=== PATIENT | female | born 1965 | race African-American/Black ===

== ENCOUNTER 2018-11-24 11:33 | Emergency (ER) | payer SELFPAY ==
[2018-11-24 12:48] LABS: Anion Gap 19 mmol/L (10-20); BUN (Urea Nitrogen) 47 mg/dL (9.8-20.1); Calc. Creatinine Clearance 0 mL/min (70-130); Calcium 10.2 mg/dL (7.8-10.44); Carbon Dioxide 21 mmol/L (22-29); Chloride 108 mmol/L (98-107); Estimated GFR-MDRD 16; Glucose 140 mg/dL (70-105); Potassium 4.6 mmol/L (3.5-5.1); Sodium 143 mmol/L (136-145)
[2018-11-24 13:14] LABS: CKMB 0.8 ng/mL (0-6.6)
== END 2018-11-24 14:45 | disposition home or self-care (01) ==
LOC: NAV ERS 11:33
DX: R79.89 Other specified abnormal findings of blood chemistry (principal); I13.0 Hypertensive heart and chronic kidney disease with heart failure and stage 1 through stage 4 chronic kidney disease, or unspecified chronic kidney disease; E11.22 Type 2 diabetes mellitus with diabetic chronic kidney disease; N18.9 Chronic kidney disease, unspecified; I50.9 Heart failure, unspecified; F17.210 Nicotine dependence, cigarettes, uncomplicated; Z79.899 Other long term (current) drug therapy; Z79.82 Long term (current) use of aspirin
CPT/HCPCS: 80048; 82553; 84484; 93005

== ENCOUNTER 2019-02-22 14:07 | Outpatient (CLI) | payer OTHER ==
--- NOTE | 2019-02-22 14:31 | RAD ---
Exam:2 views left knee HISTORY: Pain. Disability evaluation. COMPARISON: None FINDINGS: Chondrocalcinosis of the medial and lateral compartment. Moderate joint space narrowing med ially, mild to moderate lateral joint space narrowing and is severe narrowing of the patellofemoral compartment. No fracture or significant joint effusion. IMPRESSION: 1. Chondrocalcinosis. 2. Tricompartmental degenerative change.
--- NOTE | 2019-02-22 14:31 | RAD ---
LUMBAR SPINE 3 VIEWS: Date: 02/22/2019 HISTORY: Disability evaluation, low back pain. FINDINGS: Degenerative changes are present. No fracture, subluxation, or bony destruction identified. IMPRESSION: Lumbar spondylosis. POS: [facility]
== END 2019-02-22 14:08 | disposition home or self-care (01) ==
LOC: NAV RAD 14:07
PROVIDERS: ATTEND Family Medicine
DX: M54.5 Low back pain (principal); M25.562 Pain in left knee; M47.816 Spondylosis without myelopathy or radiculopathy, lumbar region; M11.262 Other chondrocalcinosis, left knee; M17.12 Unilateral primary osteoarthritis, left knee
CPT/HCPCS: 72100

== ENCOUNTER 2020-07-12 18:12 | Emergency (ER) | payer MEDICAID, SELFPAY ==
[2020-07-12] MEDS ORDERED: Acetaminophen 500 MG TAB ONE (18:49)
[2020-07-12] MEDS ORDERED: cefTRIAXone\\ROCEPHIN 1 GM VIAL ONE (18:49)
[2020-07-12] MEDS ORDERED: Lidocaine 1% (PF) 30 ML VIAL ONE (18:49)
[2020-07-12] MEDS ORDERED: Azithromycin 250 MG TAB ONE (18:49)
[2020-07-12 19:17] LABS: ALT (SGPT) 27 U/L (8-55); AST (SGOT) 25 U/L (5-34); Albumin 3.4 g/dL (3.5-5.0); Alkaline Phosphatase 94 U/L (40-110); Anion Gap 18 mmol/L (10-20); BUN (Urea Nitrogen) 81 mg/dL (9.8-20.1); Bilirubin, Total 0.4 mg/dL (0.2-1.2); Calc. Creatinine Clearance 0 mL/min (70-130); Carbon Dioxide 18 mmol/L (22-29); Chloride 107 mmol/L (98-107); Globulin 3.9 g/dL (2.4-3.5); Glucose 233 mg/dL (70-105); Potassium 3.5 mmol/L (3.5-5.1); Protein, Total 7.3 g/dL (6.0-8.3); Sodium 139 mmol/L (136-145)
[2020-07-12] MEDS ORDERED: Sodium Chloride 0.9% 1,000 ML ONE (19:29)
[2020-07-12 19:35] LABS: Band 1 % (5-11); Hemoglobin 8.3 g/dL (12.0-16.0); Lymphocytes 23 % (21-51); MDiff Complete? YES; Mean Corpuscular HGB CONC 28.7 g/dL (32.0-36.0); Mean Corpuscular Hemoglobin 26.2 pg (27.0-31.0); Mean Corpuscular Volume 91.5 fL (78.0-98.0); Mean Platelet Volume 5.7 fL (7.4-10.4); Monocytes 3 % (0-10); Neutrophil 73 % (42-75); Platelet Count 236 thou/uL (130-400); Platelet Morphology Comment Appears Adequate; RBC Distribution Width 13.4 % (11.5-14.5); Red Blood Cell (RBC) Count 3.15 mill/uL (4.20-5.40); White Blood Cell (WBC) Count 4.6 thou/uL (4.8-10.8)
[2020-07-14 00:56] LABS: SARS-CoV-2 PCR by NAA Not Detected (NotDetected)
== END 2020-07-12 20:30 | disposition home or self-care (01) ==
LOC: NAV ERS 18:12 → EDSEX 18:12 → NAV ERS 20:30
DX: J18.9 Pneumonia, unspecified organism (principal); I13.10 Hypertensive heart and chronic kidney disease without heart failure, with stage 1 through stage 4 chronic kidney disease, or unspecified chronic kidney disease; N18.9 Chronic kidney disease, unspecified; Z20.822 Contact with and (suspected) exposure to COVID-19; E11.9 Type 2 diabetes mellitus without complications; F17.210 Nicotine dependence, cigarettes, uncomplicated; Z79.82 Long term (current) use of aspirin; Z79.899 Other long term (current) drug therapy
CPT/HCPCS: 71045; 80053; 85025; 87635; 96372; J0696; J2001; J7050; U0003; U0005

== ENCOUNTER 2020-10-10 18:46 | Emergency (ER) | payer MEDICAID, OTHER | END 2020-10-10 20:30 | disposition home or self-care (01) | LOC: NAV ERS 18:46 | DX: Z20.822 Contact with and (suspected) exposure to COVID-19 (principal); E11.9 Type 2 diabetes mellitus without complications; I11.0 Hypertensive heart disease with heart failure; I50.9 Heart failure, unspecified; Z79.82 Long term (current) use of aspirin; Z79.899 Other long term (current) drug therapy | CPT/HCPCS: 99283 ==